=== PATIENT | male | born 1970 ===

== ENCOUNTER 2020-04-11 16:45 | Emergency (ER) | payer OTHER ==
[~2020-04-11] VITALS: Ht 180.3 cm; Wt 88.5 kg
[2020-04-11] MEDS ORDERED: LIDOCAINE-MPF 1%, 5ML ONE (17:11)
[2020-04-11] MEDS ORDERED: LIDOCAINE-MPF 1%, 5ML INFIL ONE (17:30)
[2020-04-11] MEDS ORDERED: NEOSPORIN OINT. PKT 1 PACKET ONE (17:49)
[2020-04-11] MEDS ORDERED: DIPH,PERTUSS(ACELL),TET VAC/PF 0.5 ML IM-VACC ONE ×2 (17:54→18:00)
[2020-04-11 18:07] VITALS: BP 115/61
--- NOTE | 2020-04-11 18:07 | NUR ---
Patient & quarantine officer given wound care & discharge instructions and they have confirmed that they understand the instructions. Patient ambulatory with steady gait.
== END 2020-04-11 18:09 | disposition home or self-care (01) ==
LOC: ED 18:00
DX: S61.012A Laceration without foreign body of left thumb without damage to nail, initial encounter (principal); W26.8XXA Contact with other sharp object(s), not elsewhere classified, initial encounter; Y93.89 Activity, other specified; Y92.89 Other specified places as the place of occurrence of the external cause; Y99.8 Other external cause status
CPT/HCPCS: 12001; 90471; 90715; 99283